=== PATIENT | female | born 1935 | race Caucasian/White ===

== ENCOUNTER 2016-06-24 18:35 | Observation (INO) | payer MEDICARE, OTHER ==
[~2016-06-24] VITALS: Ht 149.9 cm; Wt 60.1 kg
[~2016-06-24 18:35] MED LIST: ASPIRIN EC81 MG PO; COLACE100 MG PO; EVISTA60 MG PO; FLAGYL500 MG PO; LEVAQUIN500 MG PO; LOPID600 MG PO; MAGOX 400400 MG PO; NEURONTIN600 MG PO; NITROQUICK0.4 MG SL; NORVASC5 MG PO; NOVOLOG100 UNIT/2 SQ; OMEPRAZOLE40 MG PO; SYNTHROID137 MCG PO; SYNTHROID150 MCG PO; TENORMIN50 MG PO; VITAMIN B-12500 MCG PO; ZESTRIL10 MG PO; ZESTRIL40 MG PO; ZOCOR20 MG PO; ZYLOPRIM100 MG PO
[2016-06-24 19:33] LABS: URINE BILIRUBIN NEGATIVE (NEGATIVE); URINE BLOOD NEGATIVE (NEGATIVE); URINE KETONE NEGATIVE (NEGATIVE); URINE LEUKOCYTE ESTERASE NEGATIVE (NEGATIVE); URINE NITRATE NEGATIVE (NEGATIVE); URINE PROTEIN NEGATIVE (NEGATIVE); UROBILINOGEN NORMAL mg/dL (<1.0)
[2016-06-24 19:38] LABS: URINE GLUCOSE (UA) 1000 mg/dL (NORMAL)
[2016-06-24 19:42] LABS: BASO % 0.3 % (0.1-1.2); EOS # 0.1 10_X3_uL (0.0-0.4); EOS % 1.5 % (0.7-5.8); GRAN # 4.1 10_X3_uL (1.6-6.1); GRAN % 61.8 % (34.0-71.1); HEMATOCRIT 40.4 % (34-45); HEMOGLOBIN 13.5 g/dL (11.2-15.7); LYMPH # 1.6 10_X3_uL (1.2-3.7); LYMPH % 24.7 % (19.3-51.7); MEAN CORPUSCULAR HEMOGLOBIN 29.7 pg (27.0-33.0); MEAN CORPUSCULAR HGB CONC 33.4 g/dL (32.0-36.0); MEAN PLATELET VOLUME 10.9 fl (7.5-11.5); MONO # 0.8 10_X3_uL (0.2-0.9); MONO % 11.7 % (4.7-12.5); PLATELET COUNT 191 x10_3/uL (182-369); RED BLOOD COUNT 4.54 x10_6/uL (3.9-5.2); RED CELL DISTRIBUTION WIDTH 13.2 % (11.7-14.4); WHITE BLOOD COUNT 6.6 x10_3/uL (4.0-10.0)
[2016-06-24 20:01] LABS: ALBUMIN 3.9 gm/dL (3.4-5.0); ALKALINE PHOSPHATASE 79 U/L (50-136); ALT/SGPT 17 U/L (3.5-33.9); AST/SGOT 18 U/L (7.04-26.96); BILIRUBIN,TOTAL 0.25 mg/dL (0.0-1.0); BLOOD UREA NITROGEN 14 mg/dL (7-18); CALCIUM 8.8 mg/dL (8.7-10.7); CARBON DIOXIDE 25 mmol/L (21-32); CREATININE 0.8 mg/dL (0.6-1.3); GLUCOSE,RANDOM 372 mg/dL (70-99); POTASSIUM 4.1 mmol/L (3.5-5.1); SODIUM 138 mmol/L (136-145); TOTAL PROTEIN 6.7 gm/dL (6.4-8.2)
[2016-06-25 07:47] LABS: BASO % 0.3 % (0.1-1.2); EOS # 0.1 10_X3_uL (0.0-0.4); EOS % 1.4 % (0.7-5.8); GRAN # 3.5 10_X3_uL (1.6-6.1); GRAN % 60.4 % (34.0-71.1); HEMATOCRIT 39.1 % (34-45); HEMOGLOBIN 13.3 g/dL (11.2-15.7); LYMPH # 1.5 10_X3_uL (1.2-3.7); LYMPH % 25.9 % (19.3-51.7); MEAN CORPUSCULAR HEMOGLOBIN 30.3 pg (27.0-33.0); MEAN CORPUSCULAR VOLUME 89.1 fL (79-95); MEAN PLATELET VOLUME 10.6 fl (7.5-11.5); MONO # 0.7 10_X3_uL (0.2-0.9); PLATELET COUNT 177 x10_3/uL (182-369); RED BLOOD COUNT 4.39 x10_6/uL (3.9-5.2); RED CELL DISTRIBUTION WIDTH 13.1 % (11.7-14.4); WHITE BLOOD COUNT 5.8 x10_3/uL (4.0-10.0)
[2016-06-25 08:04] LABS: AHDL CHOLESTEROL 40 mg/dL (>40); ALBUMIN 3.7 gm/dL (3.4-5.0); ALKALINE PHOSPHATASE 62 U/L (50-136); ALT/SGPT 14 U/L (3.5-33.9); AST/SGOT 14 U/L (7.04-26.96); BILIRUBIN,TOTAL 0.36 mg/dL (0.0-1.0); BLOOD UREA NITROGEN 9 mg/dL (7-18); CALCIUM 8.6 mg/dL (8.7-10.7); CARBON DIOXIDE 24 mmol/L (21-32); CHOLESTEROL 125 mg/dL (0-200); CREATININE 0.7 mg/dL (0.6-1.3); GLUCOSE,RANDOM 267 mg/dL (70-99); LDL CHOLESTEROL 73 mg/dL (0-99); POTASSIUM 3.7 mmol/L (3.5-5.1); SODIUM 137 mmol/L (136-145); TOTAL PROTEIN 6.2 gm/dL (6.4-8.2); TRIGLYCERIDES 94 mg/dL (30-200)
[2016-06-26 07:16] LABS: HEMATOCRIT 35.6 % (34-45); HEMOGLOBIN 11.6 g/dL (11.2-15.7); MEAN CORPUSCULAR HEMOGLOBIN 29.5 pg (27.0-33.0); MEAN CORPUSCULAR HGB CONC 32.6 g/dL (32.0-36.0); MEAN CORPUSCULAR VOLUME 90.6 fL (79-95); MEAN PLATELET VOLUME 10.7 fl (7.5-11.5); RED BLOOD COUNT 3.93 x10_6/uL (3.9-5.2); RED CELL DISTRIBUTION WIDTH 13.2 % (11.7-14.4)
[2016-06-26 07:39] LABS: ALKALINE PHOSPHATASE 49 U/L (50-136); ALT/SGPT 11 U/L (3.5-33.9); AST/SGOT 13 U/L (7.04-26.96); BILIRUBIN,TOTAL 0.41 mg/dL (0.0-1.0); BLOOD UREA NITROGEN 11 mg/dL (7-18); CALCIUM 8.1 mg/dL (8.7-10.7); CARBON DIOXIDE 23 mmol/L (21-32); CREATININE 0.8 mg/dL (0.6-1.3); GLUCOSE,RANDOM 224 mg/dL (70-99); POTASSIUM 3.7 mmol/L (3.5-5.1); SODIUM 139 mmol/L (136-145); TOTAL PROTEIN 5.2 gm/dL (6.4-8.2)
[2016-06-27 07:29] LABS: HEMATOCRIT 36.1 % (34-45); HEMOGLOBIN 12.1 g/dL (11.2-15.7); MEAN CORPUSCULAR HGB CONC 33.5 g/dL (32.0-36.0); MEAN CORPUSCULAR VOLUME 89.6 fL (79-95); MEAN PLATELET VOLUME 11.2 fl (7.5-11.5); RED BLOOD COUNT 4.03 x10_6/uL (3.9-5.2); WHITE BLOOD COUNT 3.6 x10_3/uL (4.0-10.0)
[2016-06-27 07:45] LABS: BLOOD UREA NITROGEN 8 mg/dL (7-18); CALCIUM 8.3 mg/dL (8.7-10.7); CARBON DIOXIDE 21 mmol/L (21-32); CREATININE 0.7 mg/dL (0.6-1.3); GLUCOSE,RANDOM 202 mg/dL (70-99); SODIUM 138 mmol/L (136-145)
== END 2016-06-27 14:35 | disposition home or self-care (01) ==
LOC: ER 18:35 → MS 23:20
PROVIDERS: Internal Medicine; ADMIT Family Medicine
DX: J44.0 Chronic obstructive pulmonary disease with (acute) lower respiratory infection (principal); J20.9 Acute bronchitis, unspecified; K52.9 Noninfective gastroenteritis and colitis, unspecified; E11.9 Type 2 diabetes mellitus without complications; I10 Essential (primary) hypertension; E78.5 Hyperlipidemia, unspecified; I25.10 Atherosclerotic heart disease of native coronary artery without angina pectoris; Z95.1 Presence of aortocoronary bypass graft; R11.2 Nausea with vomiting, unspecified; R19.7 Diarrhea, unspecified; R10.9 Unspecified abdominal pain; J02.9 Acute pharyngitis, unspecified; Z79.891 Long term (current) use of opiate analgesic; Z79.899 Other long term (current) drug therapy; Z88.8 Allergy status to other drugs, medicaments and biological substances
CPT/HCPCS: 36415; 71020; 80048; 80053; 80061; 81003; 82962; 85025; 87040; 87070; 87324; 87400; 87880; 96361; 96365; 96366; 96367; 96372; 96375; 96376; 99070; 99284; 99285-25; G0378; J7040; J7050; J8597

== ENCOUNTER → 2016-08-29 | Day surgery (SDC) | payer MEDICARE, OTHER ==
[~2016-08-29] VITALS: Ht 149.9 cm; Wt 59.0 kg
== END ==
LOC: OPS 08:38
PROC: 0DJ08ZZ Inspection of Upper Intestinal Tract, Via Natural or Artificial Opening Endoscopic (ICD-10-PCS; principal; 2016-08-29)
PROC: 0DBP8ZX Excision of Rectum, Via Natural or Artificial Opening Endoscopic, Diagnostic (ICD-10-PCS; 2016-08-29)
DX: K57.30 Diverticulosis of large intestine without perforation or abscess without bleeding (principal); D12.8 Benign neoplasm of rectum; R10.9 Unspecified abdominal pain; M19.90 Unspecified osteoarthritis, unspecified site; E11.9 Type 2 diabetes mellitus without complications; R11.2 Nausea with vomiting, unspecified; R19.7 Diarrhea, unspecified; M10.9 Gout, unspecified; I25.10 Atherosclerotic heart disease of native coronary artery without angina pectoris; I25.2 Old myocardial infarction; I10 Essential (primary) hypertension; E03.9 Hypothyroidism, unspecified; J45.909 Unspecified asthma, uncomplicated; Z95.1 Presence of aortocoronary bypass graft; Z79.899 Other long term (current) drug therapy; Z79.4 Long term (current) use of insulin; Z79.82 Long term (current) use of aspirin; Z80.3 Family history of malignant neoplasm of breast; Z82.62 Family history of osteoporosis; Z83.42 Family history of familial hypercholesterolemia; Z83.3 Family history of diabetes mellitus; Z98.42 Cataract extraction status, left eye; Z98.41 Cataract extraction status, right eye; Z90.10 Acquired absence of unspecified breast and nipple
CPT/HCPCS: 43235; 45380; 82962; 99070; J2704